=== PATIENT | female | born 1980 ===

== ENCOUNTER 2020-02-19 16:56 | Outpatient (REF) | payer MEDICAID, SELFPAY | END 2020-02-19 16:57 | disposition home or self-care (01) | LOC: HO.LAB 16:56 | PROVIDERS: Visit Provider Internal Medicine | DX: Z20.822 Contact with and (suspected) exposure to COVID-19 (principal) | CPT/HCPCS: 36415; C9803; U0003 ==

== ENCOUNTER 2020-03-01 07:03 | Outpatient (REF) | payer MEDICAID, SELFPAY | END 2020-03-01 07:04 | disposition home or self-care (01) | LOC: HO.LAB 07:03 | PROVIDERS: Visit Provider Internal Medicine | DX: Z20.822 Contact with and (suspected) exposure to COVID-19 (principal) | CPT/HCPCS: 36415; C9803; U0003 ==

== ENCOUNTER 2020-05-10 11:31 | Outpatient (REF) | payer MEDICAID, SELFPAY ==
[2020-05-10 16:00] LABS: SARS COV2 PCR INHOUSE NEGATIVE (Negative)
== END 2020-05-10 11:32 | disposition home or self-care (01) ==
LOC: HO.LAB 11:31
PROVIDERS: Visit Provider Internal Medicine
DX: Z20.822 Contact with and (suspected) exposure to COVID-19 (principal)
CPT/HCPCS: C9803; U0003

== ENCOUNTER 2020-11-18 13:32 | Outpatient (REF) | payer MEDICAID, SELFPAY ==
--- NOTE | ~2020-11-18 | CT_ITS ---
EXAMINATION: CT ABDOMEN AND PELVIS WITH CONTRAST CLINICAL INFORMATION: Intermittent episodes of left lower quadrant/pelvic pain. COMPARISON: None. TECHNIQUE: Multidetector volumetric images were obtained from the superior aspect of the liver through the pubic symphysis following administration 85 mL of Omnipaque 350 intravenous contrast. Sagittal and coronal reformatted images were obtained on the technologist's workstation. Oral contrast: No This CT examination was performed using dose optimization techniques as appropriate, variously including the following: *Automated exposure control *Adjustment of mA and/or kV according to patient size (this includes techniques or standardized protocols for targeted exams where dose is matched to indication/reason for exam; i.e. extremities or head) *Use of iterative reconstruction technique DLP: 1393 mGy-cm. FINDINGS: LUNG BASES: There is plate-like atelectasis or scarring in the lingula. LIVER, GALLBLADDER, AND BILIARY TREE: The liver is normal in size, shape, and attenuation. No focal hepatic lesion or biliary ductal dilatation is present. The gallbladder has been surgically removed. PANCREAS: Unremarkable. SPLEEN: Unremarkable. ADRENAL GLANDS: Unremarkable. KIDNEYS AND URETERS: The kidneys are normal in size, shape, and attenuation. No hydronephrosis, hydroureter, or calculi seen. No perinephric stranding. BLADDER: Unremarkable. GASTROINTESTINAL TRACT: The small and large bowel are unremarkable. The appendix is unremarkable. ABDOMINAL WALL: No significant hernia is appreciated. LYMPH NODES: Normal. VASCULAR: Unremarkable. PELVIC VISCERA: There is a large solid mass arising from the posterior body of uterus and extending superiorly. It measures approximately 9.5 cm in craniocaudad length, 10.3 cm in anterior dimension and 10.9 cm in transverse dimension. There is a hypodense area in the left body of uterus measuring 6 mm, likely second lesion/fibroid. There is a 2.6 x 1.8 cm hypodense area right ovary, likely small cysts. OSSEOUS STRUCTURES: No lytic or sclerotic process seen. CT/CT abdomen pelvis w con IMPRESSION: Large solid uterine fibroid measuring 10.9 cm. Likely a small right adnexal cyst. Previous cholecystectomy.
[2020-11-18] MEDS: Barium Sulfate Oral (Mocha) 450 ML ORAL.SUSP 900 ML PO (16:08)
[2020-11-18] MEDS: iohexoL 350 MG/ML 100 ML INFUS..BTL IV (16:10)
== END 2020-11-18 13:33 | disposition home or self-care (01) ==
LOC: HO.CT 13:32
PROVIDERS: Visit Provider Family Medicine
DX: R10.32 Left lower quadrant pain (principal)
CPT/HCPCS: 74177; Q9967

== ENCOUNTER 2021-06-22 11:36 | Outpatient (REF) | payer MEDICAID, SELFPAY ==
--- NOTE | ~2021-06-22 | XR_ITS ---
EXAMINATION: XR KNEE, LEFT CLINICAL INFORMATION: Pain COMPARISON: Previous exam February 2018 TECHNIQUE: Four views of the left knee. FINDINGS: Bone alignment is normal. No fracture or dislocation is seen. There is arthritis of the lateral femoral tibial and patellofemoral joints with osteophyte formation. There may be slight lateral tilt of the patella. There is no joint effusion. 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
== END 2021-06-22 11:37 | disposition home or self-care (01) ==
LOC: HO.XRAY 11:36
PROVIDERS: PCP Internal Medicine; Visit Provider Internal Medicine
DX: M25.562 Pain in left knee (principal)
CPT/HCPCS: 73564

== ENCOUNTER 2021-07-27 11:00 | Outpatient (RCR) | payer MEDICAID, SELFPAY | END 2021-09-07 13:12 | disposition home or self-care (01) | LOC: HO.PT 11:00 | PROVIDERS: PCP Internal Medicine; Visit Provider Internal Medicine | DX: M25.562 Pain in left knee (principal) | CPT/HCPCS: 97110; 97140; 97161; 97530 ==

== ENCOUNTER → 2021-09-22 09:49 | Outpatient (BNVA) | payer MEDICAID, SELFPAY | PROVIDERS: PCP Internal Medicine; Visit Provider Physician Assistant | DX: M17.12 Unilateral primary osteoarthritis, left knee (principal) | CPT/HCPCS: 99202; J1040 ==

== ENCOUNTER 2022-07-12 04:57 | Emergency (ER) | payer MEDICAID, SELFPAY ==
--- NOTE | 2022-07-12 | ECG_ITS ---
Test Reason : CHEST PAIN Blood Pressure : / mmHG Vent. Rate : 071 BPM Atrial Rate : 071 BPM P-R Int : 156 ms QRS Dur : 088 ms QT Int : 398 ms P-R-T Axes : 000 -71 -75 degrees QTc Int : 432 ms Possible lead reversal Normal sinus rhythm Left axis deviation Inferior infarct , age undetermined Abnormal ECG No previous ECGs available Referred By: Generic ED Physician Electronically Signed By:Clyde Bruce
[2022-07-12 05:09] VITALS: BP 188/99; PULSE 69; RESP 18; TEMP 36.4; O2SAT 99; BMI 43.2
[2022-07-12 05:16] LABS: Hematocrit 40.1 % (37.0-47.0); Hemoglobin 13.4 g/dl (12.0-16.0); Mean Corpuscular HGB Conc 33.4 g/dl (31.0-35.0); Mean Corpuscular Hemoglobin 27.8 pg (27.0-33.0); Mean Corpuscular Volume 83.2 fL (80.0-98.0); Mean Platelet Volume 11.9 fL (9.4-12.3); Platelet Count 231 X10*3/uL (160-400); Red Blood Count 4.82 X10*6/uL (4.20-5.50); Red Cell Distribution Width 13.3 % (11.0-16.0); White Blood Count 14.9 X10*3/uL (4.8-10.8)
[2022-07-12 05:36] LABS: Alanine Aminotransferase 15 U/L (0-31); Albumin Level 3.9 g/dL (3.5-5.0); Alkaline Phosphatase 85 U/L (39-117); Anion Gap 14 (12-20); Aspartate Amino Transferase 12 U/L (5-31); Bilirubin Total 0.2 mg/dL (0.0-1.0); Blood Urea Nitrogen 16 mg/dL (9-16); Calcium 8.9 mg/dL (8.4-10.2); Carbon Dioxide 23 mmol/L (22-29); Chloride 105 mmol/L (96-108); Creatinine Clr Calc Pharmacy 89.8; Estimated Glomerular Filt Rate > 60; Glucose Random 137 mg/dL (60-115); Potassium 3.6 mmol/L (3.3-5.1); Sodium 138 mmol/L (135-145); Total Protein 6.7 g/dL (6.5-8.0)
[2022-07-12 05:37] LABS: Troponin-I High Sensitivity < 2.7 ng/L (<3.5-17.0)
--- NOTE | 2022-07-12 08:51 | ED_ITS ---
HPI - General Adult General Chief complaint: General Medical Stated complaint: Left arm pain/ numbness/ chest pain Time Seen by Provider: 07/12/22 08:51 Source: patient Mode of arrival: ambulatory Limitations: no limitations History of Present Illness HPI narrative: Patient is a 42 year old assigned female at with a history of diabetes presenting to the emergency department today with left shoulder pain. Patient states that she is having left shoulder pain that radiates into her left neck and down into her left hand. Patient states that it hurts more when she tries to move it. Patient states that she was evaluated by her PCP who ordered a plain x- ray that showed no acute process of the chest or shoulder. Patient states that she is on prednisone and a muscle relaxer from her PCP and this pain has been going on 10 days. Patient denies any dizziness, lightheadedness, abdominal pain, nausea, vomiting, fever, chills, blurry vision, double vision, loss of vision, chest pain, difficulty breathing, shortness of breath, back pain, night sweats, pain with urination, increased urinary frequency, increased urinary urgency, blood in her urine or stool, syncope or a near syncopal episode, recent trauma or falls, bowel incontinence, bladder incontinence, bowel retention, bladder retention, or any other complaints at this time. Onset (ago): day(s) (10) Location: left and upper extremity Radiation: neck and distal Severity: mild Severity scale (1-10): 3 Relieving factors: none Exacerbating factors: movement Associated symptoms: denies other symptoms Treatments prior to arrival: other (prednisone and flexeril) Related Data Home Medications Medication Instructions Recorded Confirmed acetaminophen 650 mg 1,300 mg PO Q6H PRN 09/22/21 tablet,extended release (Mapap Arthritis Pain) albuterol sulfate 90 mcg/actuation 2 puff PO QID PRN wheezing 09/22/21 aerosol inhaler (ProAir HFA) blood sugar diagnostic (FreeStyle #10 ea 09/22/21 Lite Strips) blood-glucose meter (FreeStyle #1 ea 09/22/21 Lite Meter kit) cholecalciferol (vitamin D3) 25 25 mcg PO DAILY 09/22/21 mcg (1,000 unit) tablet fluticasone propionate 110 1 puff inhalation BID 09/22/21 mcg/actuation HFA aerosol inhaler (Flovent HFA) metformin 1,000 mg tablet 1,000 mg PO 09/22/21 tolterodine 2 mg tablet 2 mg PO BID 09/22/21 tramadol 50 mg tablet 50 mg PO Q12H PRN 09/22/21 Allergies Allergy/AdvReac Type Severity Reaction Status Date / Time aspirin [ASA] Allergy Severe SWELLING Verified 07/12/22 05:18 acetaminophen [From PERCOCET] AdvReac Intermediate TACHYCARDIA Verified 07/12/22 05:18 oxycodone [From PERCOCET] AdvReac Intermediate TACHYCARDIA Verified 07/12/22 05:18 aspirin Allergy Unknown swollen Uncoded 07/12/17 00:00 ibuprofen Allergy Unknown swollen Uncoded 07/12/17 00:00 opioids Allergy Unknown heart Uncoded 07/12/17 00:00 beats fast Pt states no food allergies Allergy Unknown Unknown Uncoded 07/12/22 05:18 Review of Systems Constitutional: Constitutional: Reports no additional constitutional complaints, Denies chills, Denies fever(s) and Denies night sweats Eyes: Eyes: Reports no additional eye complaints, Denies blurry vision, Denies change in vision, Denies diplopia, Denies eye discharge, Denies loss of vision and Denies eye pain ENT: Denies dizziness Cardiovascular: Cardiovascular: Reports no additional cardiovascular complaints, Denies chest pain, Denies lightheadedness, Denies Loss of Consciousness and Denies dyspnea Respiratory: Respiratory: Reports no additional respiratory complaints and Denies dyspnea Gastrointestinal: Gastrointestinal: Reports no additional gastrointestinal complaints, Denies abdominal pain, Denies melena, Denies hematochezia, Denies change in bowel habits and Denies change in stool character Genitourinary: Genitourinary: Denies hematuria, Denies urinary frequency, Denies dysuria, Denies urinary incontinence, Denies urinary hesitancy and Denies urinary urgency Musculoskeletal: Musculoskeletal: Reports no additional musculoskeletal complaints, Denies numbness and Denies tingling Comments: left shoulder pain Neurologic: Denies dizziness, Denies loss of vision, Denies numbness and Denies tingling Psychiatric: Psychiatric: Reports no additional psychiatric complaints Endocrine: Endocrine: Reports no additional endocrine complaints Hematologic/Lymphatic: Hematologic/Lymphatic: Reports no additional hematologic/lymphatic complaints Allergic/Immunologic: Allergic/Immunologic: Reports no additional allergic/immunologic complaints PMFSH Past Medical History Attestation statement: The following information was validated with the patient. Source: old records reviewed and nursing notes reviewed Medical History Asthma Depression with anxiety Diabetes High blood pressure Surgical History History of bladder surgery History of delivery Social History Social History Patient Tobacco Use Status: Never used Tobacco Advance Directives: No Current occupational status: employed Current occupation: [employer], rt hand Physical Exam ED Vital Signs: Vital Signs - 24 hr 07/12/22 05:09 07/12/22 08:56 Temperature 97.6 F 97.9 F Pulse Rate 69 72 Respiratory Rate 18 20 Blood Pressure 188/99 H 162/85 H Pulse Oximetry 99 99 Oxygen Delivery Method Room Air Room Air BMI result Body Mass Index 43.2 Const General: cooperative, no acute distress, alert and awake Nutritional Appearance: well nourished Orientation/consciousness: patient oriented x3 Limitations: no limitations HENMT Head: Yes normal to inspection and Yes atraumatic Ears: hearing grossly normal bilaterally and external ears normal General nose exam: Normal external nose present, no nasal discharge noted and no epistaxis Face and sinus: Yes normal facial exam, No abrasion and No laceration Mouth: Normal oral and palatal mucosa present, no drooling and no muffled voice Eyes General: appearance normal, both eyes and all related structures Periorbital: periorbital findings normal Eyelids: Yes eyelids normal Conjunctivae: conjunctivae normal Pupils: Equal, round and reactive pupils present EOM: EOMs intact bilaterally Neck Neck: Yes normal visual inspection, Yes full ROM and Yes no lymphadenopathy Chest Chest palpation & inspection: normal inspection of the chest Resp Effort & Inspection: normal respiratory effort and able to speak in complete sentences GI Inspection: Yes normal to inspection Neuro General: patient oriented x3 and moves all extremities Cranial nerves: Yes Equal, round and reactive pupils present Cognition (Neuro): normal cognition Motor exam (neuro): 5/5 motor strength present throughout Sensory Exam: Normal double simultaneous stimulation for sensation Coordination: [id number] test normal Extrem Other: patient has limited ROM of the left shoulder secondary to pain General: Yes normal to inspection and Yes capillary refill normal Psych Appearance: grossly normal Mental Status: mental status grossly normal Affect: normal affect Attitude: cooperative Thought process: Normal thought process present Thought content: Normal thought content present Insight: Good insight present (Psych) Medical Decision Making Medical Decision Making MDM Narrative: Patient is a 42 year old assigned female at with a history of diabetes presenting to the emergency department today with left shoulder pain. Patient's physical exam showed pain in the left shoulder secondary to ROM but was otherwise unremarkable. Patient's blood work showed a slightly elevated WBC count however, this is consistent with prednisone use. Patient's EKG was unremarkable. I explained my physical exam findings as well as all test results to the patient. I answered all questions asked by the patient. I stressed the importance of the patient taking her medication as prescribed. I stressed the importance of the patient following up with her primary care provider, an ort hopedic provider, and a medical management specialist. I stressed the importance of the patient returning to the emergency department immediately if her symptoms were to worsen or if she were to develop any dizziness, shortness of breath, difficulty breathing, chest pain, blurry vision, loss of vision, nausea, v omiting, abdominal pain, fever, chills, back pain, or any other complaints. Patient verbalized agreement and understanding with this treatment plan and discharge. Differential Diagnosis Differential Diagnoses: The differential diagnosis associated with the presentation includes left shoulder pain, cervical radiculopathy, left rotator cuff injury Admission/Observation Consideration of admission/observation: Escalation of care including admission/observation considered Patient would have been admitted to the hospital had his work up had any findings where hospital admission was appropriate. Lab Data [facility] Lab Attestation statement: I reviewed the patient's lab results. My interpretation of these studies and their corresponding values is that they are grossly normal with the exception of her slightly elevated WBC count however, this is normal given her recent prednisone use. 07/12/22 05:11 07/12/22 05:11 Labs: Lab Results 07/12/22 07/12/22 07/12/22 Range/Units 05:11 05:11 05:11 WBC 14.9 H (4.8-10.8) X10*3/uL RBC 4.82 (4.20-5.50) X10*6/uL Hgb 13.4 (12.0-16.0) g/dl Hct 40.1 (37.0-47.0) % MCV 83.2 (80.0-98.0) fL MCH 27.8 (27.0-33.0) pg MCHC 33.4 (31.0-35.0) g/dl RDW 13.3 (11.0-16.0) % Plt Count 231 (160-400) X10*3/uL MPV 11.9 (9.4-12.3) fL Absolute Nucleated RBC 0.000 (0.0-0.012) X10*3/uL Nucleated RBC % (auto) 0.0 (0.0-0.2) /100WBC Sodium 138 (135-145) mmol/L Potassium 3.6 (3.3-5.1) mmol/L Chloride 105 (96-108) mmol/L Carbon Dioxide 23 (22-29) mmol/L Anion Gap 14 (12-20) BUN 16 (9-16) mg/dL Creatinine 0.85 (0.5-1.4) mg/dL Estim Creat Clear Calc 89.8 Estimated GFR > 60 Random Glucose 137 H (60-115) mg/dL Calcium 8.9 (8.4-10.2) mg/dL Total Bilirubin 0.2 (0.0-1.0) mg/dL AST 12 (5-31) U/L ALT 15 (0-31) U/L Alkaline Phosphatase 85 (39-117) U/L Troponin I High Sens < 2.7 (<3.5-17.0) ng/L Total Protein 6.7 (6.5-8.0) g/dL Albumin 3.9 (3.5-5.0) g/dL Independent Interpretation I performed an independent interpretation of an: EKG Interpretation: Vent. Rate: 071 BPM ? ? Atrial Rate: 071 BPM P-R Int: 156 ms? QRS Dur: 088 ms QT Int: 398 ms ? ? ? P-R-T Axes: 000 -71 -75 degrees QTc Int: 432 ms ? Normal sinus rhythm Left axis deviation Inferior infarct , age undetermined Abnormal ECG No previous ECGs available DD/ [id number] Discharge Plan Discharge Clinical Impression: Cervical radiculopathy, Rotator cuff dysfunction Patient Disposition: Home, Self-Care Instructions: Rotator Cuff Injury (ED), Cervical Radiculopathy (ED), Rotator Cuff Injury Exercises (DC) Additional Instructions: Your EKG and lab work was reassuring that this is not a cardiac issue. Continue taking the medications prescribed by your PCP (the muscle relaxer and steroid). Follow up with your primary care provider, the orthopedic group, and a medical management specialist. Return to the emergency department immediately if your symptoms worsen or if you develop any dizziness, shortness of breath, difficulty breathing, chest pain, blurry vision, loss of vision, nausea, vomiting, abdominal pain, fever, chills, back pain, or any other complaints. Prescriptions: No Action tolterodine 2 mg tablet 2 mg PO BID fluticasone propionate [Flovent HFA] 110 mcg/actuation HFA aerosol inhaler 1 puff inhalation BID albuterol sulfate [ProAir HFA] 90 mcg/actuation HFA aerosol inhaler 2 puff PO QID PRN (Reason: wheezing) metformin 1,000 mg tablet 1,000 mg PO tramadol 50 mg tablet 50 mg PO Q12H PRN acetaminophen [Mapap Arthritis Pain] 650 mg tablet extended release 1,300 mg PO Q6H PRN (DME) blood-glucose meter [FreeStyle Lite Meter] Kit See Rx Instructions .ROUTE DAILY Qty: 1 Rx Instructions: As directed (DME) FreeStyle Lite Strips Strip See Rx Instructions Not Applicable BID Qty: 10 Rx Instructions: As directed cholecalciferol (vitamin D3) 25 mcg (1,000 unit) tablet 25 mcg PO DAILY Referrals: [facility] [Provider Group] (Call to establish and follow up with an orthopedic provider.) [facility] [Provider Group] (Call to establish and follow up with a medical management specialist. ) Gerhard Weiss MD [Primary Care Provider] - Stand Alone Forms: Work/School Release Print Language: Tanzanian
[2022-07-12 08:56] VITALS: BP 162/85; PULSE 72; RESP 20; TEMP 36.6; O2SAT 99
--- OUTSIDE RECORDS SUMMARY | 2022-07-12 09:07 | XMS_ITS | Continuity of Care Document ---
Author Name Unknown Organization [facility] ter Address [address] [place] [id number] Care Team Providers Care Corporate Giving Manager Name Role Phone Meli Pat MD Primary Care Physician Encounter [facility] [place] Date(s): 09/24/19 - 09/24/[address] [address]- [facility] Discharge Disposition: A-D/C Walkout Attending Physician: Not on Staff, Attending MD Admitting Physician: Not on Staff, Admitting MD Referring Physician: Not on Staff, Referring MD Allergies, Adverse Reactions, Alerts Substance Reaction Severity Status ibuprofen Active aspirin Active Medications Ambien 10 mg oral tablet 1 tablet = 10 mg, By Mouth, Daily at bedtime, PRN for sleep, 0 Refills, Maintenance, 08/29/15 15:29:46, Tablet Start Date: 08/29/15 Status: Ordered Depakote ER 500 mg oral tablet, extended release 1 tablet = 500 mg, By Mouth, Daily, 0 Refills, Maintenance, 08/29/15 15:29:08 Start Date: 08/29/15 Status: Ordered FLUoxetine 20 mg oral capsule 20 mg, By Mouth, Daily, Refills 0, Maintenance, 07/18/15 15:01:10 Start Date: 07/18/15 Status: Ordered KlonoPIN 0.5 mg oral tablet 1 tablet = 0.5 mg, By Mouth, 3 times a day, 0 Refills, Maintenance, 08/29/15 15:31:52 Start Date: 08/29/15 Status: Ordered LITHium Tablet 300 mg, By Mouth, 3 times a day, Maintenance, 03/08/14 22:24:47 Start Date: 03/08/14 Status: Ordered metoprolol 25 mg oral tablet, extended release 25 mg, 1, tablet, By Mouth, Daily, # 30 tablet, Refills 0, Tot. Refills 0, Maintenance, 07/18/15 15:03:17, Route to Pharmacy Electronically, [id number], [facility] Start Date: 07/18/15 Stop Date: 08/17/15 Status: Ordered MetroGel-Vaginal 0.75% vaginal gel with applicator one applicator, Vaginally, 2 times a day, # 10 applicator, 0 Refills, Maintenance, 12/24/14 0:48:36 Start Date: 12/24/14 Stop Date: 12/29/14 Status: Ordered Percocet-5/325 325 mg-5 mg oral tablet 1 tablet, By Mouth, Every 6 hours, PRN Pain , Moderate, # 8 tablet, 0 Refills, Maintenance, 12/24/14 0:48:30 Start Date: 12/24/14 Stop Date: 12/26/14 Status: Ordered Seroquel By Mouth, Refills 0, Maintenance, 08/29/15 15:30:12 Start Date: 08/29/15 Status: Ordered Singulair 10 mg oral tablet 10 mg, 1, tablet, By Mouth, Daily before dinner, Refills 0, Maintenance, 08/29/15 15:30:27 Start Date: 08/29/15 Status: Ordered SUMAtriptan 50 mg oral tablet 1 tablet = 50 mg, By Mouth, Once, 0 Refills, Maintenance, 08/29/15 15:29:37 Start Date: 08/29/15 Status: Ordered Vistaril Capsule Intramuscular, Every 4 hours, 0 Refills, Maintenance, 03/08/14 22:25:00 Start Date: 03/08/14 Status: Ordered Social History Social History Type Response Smoking Status Current every day alysha solorio; Type: Cigarettes; Tobacco use times per day: 3 cigarettes daily; entered on: 12/23/14 Sex
[2022-07-12] MEDS: Cyclobenzaprine HCl 5 MG TABLET PO (09:37)
== END 2022-07-12 09:39 | disposition home or self-care (01) ==
PROVIDERS: Emergency Provider Internal Medicine; PCP Internal Medicine
DX: M54.12 Radiculopathy, cervical region (principal); S46.012A Strain of muscle(s) and tendon(s) of the rotator cuff of left shoulder, initial encounter; X58.XXXA Exposure to other specified factors, initial encounter; E11.9 Type 2 diabetes mellitus without complications; Y93.9 Activity, unspecified; Y92.9 Unspecified place or not applicable; Y99.9 Unspecified external cause status
CPT/HCPCS: 36415; 80053; 84484; 85027; 93005; 99283; 99284

== ENCOUNTER 2022-07-18 15:05 | Outpatient (REF) | payer MEDICAID, SELFPAY | END 2022-07-18 15:06 | disposition home or self-care (01) | LOC: HO.XRAY 15:05 | PROVIDERS: Visit Provider Internal Medicine | DX: M54.2 Cervicalgia (principal) | CPT/HCPCS: 72050 ==

== ENCOUNTER 2022-09-05 12:24 | Outpatient (REF) | payer MEDICAID, SELFPAY ==
[2022-09-12 06:34] LABS: HPV mRNA E6/E7 rflx Not Detected (Not Detected)
== END 2022-09-05 12:25 | disposition home or self-care (01) ==
LOC: HO.LNP 12:24
PROVIDERS: Visit Provider Advanced Practice Midwife
DX: Z12.4 Encounter for screening for malignant neoplasm of cervix (principal); Z11.51 Encounter for screening for human papillomavirus (HPV)
CPT/HCPCS: 87624; 88142

== ENCOUNTER → 2022-10-13 13:30 | Outpatient (BNV) | payer MEDICAID, SELFPAY | PROVIDERS: PCP Internal Medicine; Visit Provider Radiology Diagnostic Radiology | DX: Z12.31 Encounter for screening mammogram for malignant neoplasm of breast (principal) | CPT/HCPCS: 77063; 77067 ==

== ENCOUNTER 2022-10-13 13:31 | Outpatient (REF) | payer MEDICAID, SELFPAY | END 2022-10-13 13:32 | disposition home or self-care (01) | LOC: HO.MAMMO 13:31 | PROVIDERS: PCP Internal Medicine; Visit Provider Advanced Practice Midwife | DX: Z12.31 Encounter for screening mammogram for malignant neoplasm of breast (principal) | CPT/HCPCS: 77063; 77067 ==